=== PATIENT | male | born 1945 | race Caucasian/White ===

== ENCOUNTER 2021-02-11 09:39 | Inpatient (IN) ==
[2021-02-11 10:46] LABS: Basophils % 0.2 % (0.0-0.8); Eosinophils % 0.2 % (0.00-10.9); Hematocrit 38.3 VOL% (42.0-52.0); Immature Granulocytes % 0.8 %; Immature Granulocytes Absolute 0.14 #; Lymphocytes # 1.5 10*3/uL (1.4-4.0); Lymphocytes % 8.6 % (21.2-54.2); Mean Corpuscular HGB Conc 33.9 GM/DL (32-36); Mean Corpuscular Volume 97.2 FL (87-102); Mean Platelet Volume 10.1 FL (9.6-12.0); Monocytes % 6.3 % (1.7-12.7); Neutrophils % 83.9 % (38.7-73.9); Platelet Count 175 T/CUMM (130-400); Red Blood Count 3.94 MC/CUMM (3.8-5.5); Red Cell Distribution Width 11.9 % (9.3-17.3); White Blood Count 17.4 T/CUMM (4-12)
[2021-02-11 11:05] LABS: Calcium 8.9 MG/DL (8.5-10.1); Osmolality,Calculated 278.8 MOS/KG (273-304); Potassium 4.4 MMOL/L (3.5-5.1)
[2021-02-11 11:32] LABS: Bacteria,Urine Occasional /HPF (Few); Bilirubin,Urine Negative (Negative); Blood, Urine Moderate mg/dL (Negative); Glucose,Urine (UA) Negative (Negative); Ketones,Urine Negative (Negative); Mucus,Urine Occasional /LPF (Occasional); Nitrite,Urine Negative (Negative); Protein,Urine 30 MG/DL; RBC,Urine 8 /HPF (0-4); Squamous Epithelial Cell,Urine Occasional /HPF (0-10); Urine Appearance CLEAR (Clear); Urine Color Yellow (Yellow); Urine Specific Gravity 1.016 (1.001-1.035); Urine Urobilinogen < 2.0 EU/DL (0.2-1.0)
[2021-02-11] MEDS ORDERED: ALBUTEROL 2.5 MG/3 ML NEB RESP TX PRN (13:51)
[2021-02-11] MEDS ORDERED: ACETAMINOPHEN 325 MG TABLET PO PRN (13:51)
[2021-02-11] MEDS ORDERED: ONDANSETRON 4 MG/2 ML VIAL IV PRN (13:51)
[2021-02-11] MEDS ORDERED: DOCUSATE SODIUM 100 MG CAPSULE PO PRN (13:51)
[2021-02-11 14:03] VITALS: BP 111/59
[2021-02-11] MEDS ORDERED: ALTEPLASE 2 MG VIAL ONE (14:07)
[2021-02-11] MEDS ORDERED: HEPARIN/NACL 0.9% 2 UNITS/ML 1,000 UNIT/500 ML BAG IV ONE (14:08)
[2021-02-11] MEDS ORDERED: HYDROmorphone 2 MG/1 ML VIAL ONE (14:08)
[2021-02-11] MEDS ORDERED: MIDAZOLAM 2 MG/2 ML VIAL ONE (14:09)
[2021-02-11] MEDS ORDERED: SIMETHICONE CHEW 80 MG TABLET PO PRN (14:40)
[2021-02-11] MEDS ORDERED: ALTEPLASE 12 MG in SODIUM CHLORIDE 0.9% 240 ML IV SCH (15:00)
[2021-02-11] MEDS ORDERED: HEPARIN DRIP 25,000 UNITS/500 ML PREMIX IV SCH ×2 (15:00)
[2021-02-11] MEDS ORDERED: SODIUM CHLORIDE 0.9% 1,000 ML IV SCH ×2 (15:00)
[2021-02-11 15:18] LABS: INR 1.1; Partial Thromboplastin Time 30.8 SECS (23.8-32.1)
[2021-02-11] MEDS: LACTATED RINGERS 1,000 ML IV SCH (16:50)
[2021-02-11] MEDS: PANTOPRAZOLE 40 MG TABLET PO SCH (17:13)
[2021-02-11 17:27] LABS: INR 1.1; PT Patient Result 12.2 SECS (10.5-12.0)
[2021-02-11] MEDS: ACETYLCYSTEINE 600 MG CAPSULE PO SCH (21:43)
[2021-02-12] MEDS: LACTATED RINGERS 1,000 ML IV SCH ×3 (01:12→16:28)
[2021-02-12 03:22] LABS: Basophils % 0.3 % (0.0-0.8); Eosinophils # 0.1 10*3/uL (0.0-0.87); Eosinophils % 0.8 % (0.00-10.9); Hematocrit 34.9 VOL% (42.0-52.0); Hemoglobin 11.5 GM/DL (14.0-18.0); Immature Granulocytes % 0.6 %; Immature Granulocytes Absolute 0.09 #; Lymphocytes # 1.5 10*3/uL (1.4-4.0); Mean Corpuscular Volume 99.1 FL (87-102); Mean Platelet Volume 9.8 FL (9.6-12.0); Monocytes % 7.2 % (1.7-12.7); Neutrophils % 80.1 % (38.7-73.9); Platelet Count 173 T/CUMM (130-400); Red Blood Count 3.52 MC/CUMM (3.8-5.5); White Blood Count 13.9 T/CUMM (4-12)
[2021-02-12 03:31] LABS: INR 1.1; PT Patient Result 12.2 SECS (10.5-12.0)
[2021-02-12 03:40] LABS: Albumin 2.5 G/DL (3.4-5.0); Bilirubin,Total 1.6 MG/DL (0.20-1.00); Calcium 8.2 MG/DL (8.5-10.1); Osmolality,Calculated 283.3 MOS/KG (273-304); Potassium 4.3 MMOL/L (3.5-5.1); Risk Ratio 4.45; VLDL Cholesterol 23.8 MG/DL
[2021-02-12 03:50] LABS: Partial Thromboplastin Time 45.4 SECS (23.8-32.1)
[2021-02-12] MEDS: ACETYLCYSTEINE 600 MG CAPSULE PO SCH ×2 (08:27→21:21)
[2021-02-12] MEDS: PANTOPRAZOLE 40 MG TABLET PO SCH (08:28)
[2021-02-12] MEDS ORDERED: APIXABAN 5 MG TABLET PO ONE (15:00)
[2021-02-12 15:37] LABS: Partial Thromboplastin Time 29.9 SECS (23.8-32.1)
[2021-02-12] MEDS ORDERED: oxyCODONE/ACETAMINOPHEN 5-325 MG TABLET PO PRN (20:06)
[2021-02-13 02:42] LABS: Basophils # 0.1 10*3/uL (0.0-0.2); Basophils % 0.6 % (0.0-0.8); Eosinophils # 0.4 10*3/uL (0.0-0.87); Eosinophils % 3.3 % (0.00-10.9); Hematocrit 32.8 VOL% (42.0-52.0); Hemoglobin 10.8 GM/DL (14.0-18.0); Immature Granulocytes % 0.7 %; Immature Granulocytes Absolute 0.08 #; Lymphocytes # 1.7 10*3/uL (1.4-4.0); Lymphocytes % 15.3 % (21.2-54.2); Mean Corpuscular HGB Conc 32.9 GM/DL (32-36); Mean Corpuscular Volume 98.2 FL (87-102); Mean Platelet Volume 9.9 FL (9.6-12.0); Monocytes % 6.7 % (1.7-12.7); Neutrophils % 73.4 % (38.7-73.9); Platelet Count 199 T/CUMM (130-400); Red Blood Count 3.34 MC/CUMM (3.8-5.5); Red Cell Distribution Width 11.9 % (9.3-17.3); White Blood Count 10.8 T/CUMM (4-12)
[2021-02-13 02:58] LABS: Partial Thromboplastin Time 35.9 SECS (23.8-32.1)
[2021-02-13 03:02] LABS: Calcium 8.3 MG/DL (8.5-10.1); Osmolality,Calculated 279.5 MOS/KG (273-304); Potassium 4.2 MMOL/L (3.5-5.1)
[2021-02-13] MEDS: LACTATED RINGERS 1,000 ML IV SCH ×3 (08:00→19:45)
[2021-02-13] MEDS ORDERED: OXYBUTYNIN XL 10 MG TABLET PO SCH (09:00)
[2021-02-13] MEDS: MULTIVITAMIN (CENTRUM) TABLET PO SCH (10:00)
[2021-02-13] MEDS: PANTOPRAZOLE 40 MG TABLET PO SCH (10:00)
[2021-02-13] MEDS: APIXABAN 5 MG TABLET PO SCH ×2 (10:00→20:15)
[2021-02-13] MEDS: ASPIRIN EC 81 MG TABLET PO SCH (10:00)
[2021-02-13] MEDS: ACETYLCYSTEINE 600 MG CAPSULE PO SCH ×2 (10:00→20:15)
[2021-02-13 14:47] LABS: Partial Thromboplastin Time 34.9 SECS (23.8-32.1)
[2021-02-13] MEDS: LACTULOSE 20 GM/30 ML UDCUP PO PRN (17:45)
[2021-02-14 04:00] LABS: Basophils # 0.1 10*3/uL (0.0-0.2); Basophils % 0.6 % (0.0-0.8); Eosinophils # 0.4 10*3/uL (0.0-0.87); Eosinophils % 5.3 % (0.00-10.9); Hematocrit 34.6 VOL% (42.0-52.0); Hemoglobin 11.3 GM/DL (14.0-18.0); Immature Granulocytes Absolute 0.08 #; Lymphocytes # 1.5 10*3/uL (1.4-4.0); Lymphocytes % 18.6 % (21.2-54.2); Mean Corpuscular HGB Conc 32.7 GM/DL (32-36); Mean Corpuscular Volume 98.3 FL (87-102); Mean Platelet Volume 10.2 FL (9.6-12.0); Monocytes % 9.2 % (1.7-12.7); Neutrophils % 65.3 % (38.7-73.9); Platelet Count 260 T/CUMM (130-400); Red Blood Count 3.52 MC/CUMM (3.8-5.5); Red Cell Distribution Width 11.9 % (9.3-17.3); White Blood Count 8.1 T/CUMM (4-12)
[2021-02-14 04:10] LABS: Partial Thromboplastin Time 32.1 SECS (23.8-32.1)
[2021-02-14 04:16] LABS: Calcium 8.7 MG/DL (8.5-10.1); Osmolality,Calculated 277.7 MOS/KG (273-304); Potassium 4.1 MMOL/L (3.5-5.1)
[2021-02-14] MEDS: LACTATED RINGERS 1,000 ML IV SCH (06:09)
[2021-02-14] MEDS: APIXABAN 5 MG TABLET PO SCH (09:21)
[2021-02-14] MEDS: ASPIRIN EC 81 MG TABLET PO SCH (09:22)
[2021-02-14] MEDS: PANTOPRAZOLE 40 MG TABLET PO SCH (09:22)
[2021-02-14] MEDS: ACETYLCYSTEINE 600 MG CAPSULE PO SCH (09:22)
[2021-02-14] MEDS: MULTIVITAMIN (CENTRUM) TABLET PO SCH (09:22)
[2021-02-14] MEDS: LACTULOSE 20 GM/30 ML UDCUP PO PRN (09:23)
== END 2021-02-14 13:00 | disposition home health service (06) | DRG 167 ==
LOC: EDUNIT# → EDBD → N.ED 09:39 → N.ICU 13:40 → SUATTDRO 13:51 → N.EDINP 13:51 → N.ICU 14:58
PROVIDERS: ADMIT Internal Medicine; ATTEND Internal Medicine